=== PATIENT | female | born 1975 | race Caucasian/White ===

== ENCOUNTER 2018-03-06 16:32 | Emergency (ER) | payer OTHER ==
[2018-03-06 16:48] VITALS: BP 118/58
[2018-03-06] MEDS ORDERED: Albuterol/Ipratropium NEB.SOL* Albuterol 2.5 MG/Ipratropium 0.5 MG 3 ML INH ONE (17:53)
--- NOTE | 2018-03-06 17:58 | UC ---
FLU HPI - HPI Summary HPI Summary: This patient is a 42 year old F [place] [facility] [place] chief complaint of a flu like illness that began 10 days ago. Pt states that 10 days ago she began have myalgia and believed she felt like she was getting the flu. She c/o a sore chest, raspy cough, and post nasal drip. 3 days ago she began having intermittent episodes of SOB that she describes as feeling like there is a pressure on her chest, these last 30 minutes, then spontaneously resolve. The patient rates the pain 4/10 in severity. Patient reports chills. Patient denies fever and wheezing. Pt saw her PCP today who was unable to find the underlying cause of her SOB but prescribed her abx. Pt had a UTI a few weeks ago and was given abx. Pt states she was looking at mouse [employer] online because her house is infested and she is concerned she may have the hantavirus because she has seen mouse feces in her bed. - History of Current Complaint Chief Complaint: UCRespiratory Stated Complaint: DIFFICULTY BREATHING,COUGH,CHILLS Time Seen by Provider: 03/06/18 17:31 Hx Obtained From: Patient Onset/Duration: Lasting Days - 10, Still Present, Worse Since - 3 days ago Severity Currently: Mild Severity Initially: Moderate Pain Intensity: 4 Associated Signs & Symptoms: Positive: Negative - fever, Cough - Allergy/Home Medications Allergies/Adverse Reactions: Allergies Allergy/AdvReac Type Severity Reaction Status Date / Time ciprofloxacin [From Cipro] Allergy Joint Pain Verified 03/06/18 16:48 morphine Allergy Tingling Verified 03/06/18 16:48 Tetracyclines Allergy Hives Verified 03/06/18 16:48 Home Medications: Home Medications Escitalopram Oxalate [Lexapro 10 mg] 10 mg PO DAILY 03/06/18 [History Confirmed 03/06/18] PMH/Surg Hx/FS Hx/Imm Hx Psychological History: Anxiety Other History Of: Negative For: Anticoagulant Therapy - Surgical History Surgical History: Yes Surgery Procedure, Year, and Place: [facility] - Family History Known Family History: Negative: Respiratory Disease, Seizure Disorder, Blood Disorder - Social History Lives: With Family Alcohol Use: None Substance Use Type: None Smoking Status (MU): Never Smoked Tobacco Have You Smoked in the Last Year: No - Immunization History Most Recent Influenza Vaccination: fall 2012 Most Recent Tetanus Shot: unk Most Recent Pneumonia Vaccination: never Review of Systems Constitutional: Negative - fever, Chills ENT: Nasal Discharge, Other - post nasal drip Respiratory: Shortness Of Breath, Cough Cardiovascular: Other - sore chest w/ cough Musculoskeletal: Myalgia All Other Systems Reviewed And Are Negative: Yes Physical Exam - Summary Physical Exam Summary: General: mildly ill apearing, no pain distress Skin: warm, color reflects adequate perfusion, dry Head: normal Eyes: EOMI, JASON ENT: posterior pharynx erythema, anterior cervical lymphadenopathy, positive rhinorrhea, Neck: supple, nontender Respiratory: decreased air movement in the lung s Cardiovascular: RRR Abdomen: soft, nontender Bowel: present Musculoskeletal: normal, strength/ROM intact Neurological: sensory/motor intact, A&O x3 Psychological: affect/mood appropriate Triage Information Reviewed: Yes Vital Signs: Initial Vital Signs Temp 99.0 F 03/06/18 16:41 Pulse 81 03/06/18 16:41 Resp 18 03/06/18 16:41 BP 118/58 03/06/18 16:41 Pulse Ox 100 03/06/18 16:41 Vital Signs Reviewed: Yes Diagnostics - Radiology CXR Radiology Interpretation Completed By: Radiologist - No radiographic evidence of acute cardiopulmonary disease. Dr. Liao has reviewed this report. Flu Course/Dx - Course Course Of Treatment: We discussed the results of the chest x-ray. The patient is unsure if the DuoNeb helped. We discussed getting lab work which we did and the results are pending. The patient is on amoxicillin at this time with her primary care doctor. Discussed if her condition got worse she should evaluated in the emergency department. - Differential Dx/Diagnosis Provider Diagnoses: BRONCHITIS Discharge - Sign-Out/Discharge Documenting (check all that apply): Patient Departure All imaging exams completed and their final reports reviewed: Yes - Discharge Plan Condition: Stable Disposition: HOME Patient Education Materials: Fever in Adults (ED), Acute Bronchitis (ED) Referrals: Apple Rao MD [Primary Care Provider] - Additional Instructions: FOLLOW UP WITH YOUR DOCTOR. GO TO THE EMERGENCY DEPARTMENT FOR ANY WORSENING OF YOUR CONDITION OR QUESTIONS OR CONCERNS. - Billing Disposition and Condition Condition: STABLE Disposition: Home - Attestation Statements Document Initiated by Scribe: Yes Documenting Scribe: Roc Mckeon Provider For Whom Scribe is Documenting (Include Credential): Sampson Perdueibe Attestation: I, Roc Mckeon, scribed for Sampson Liao MD on 03/06/18 at 2138. Scribe Documentation Reviewed: Yes Provider Attestation: The documentation as recorded by the scribeRoc accurately reflects the service I personally performed and the decisions made by me, Sampson Liao MD
--- NOTE | 2018-03-06 18:24 | RAD ---
INDICATION: Shortness of breath, cough and fever COMPARISON: Chest x-ray dated December 17, 2013 TECHNIQUE: PA and lateral views of the chest were obtained. FINDINGS: The heart and mediastinum are normal in size and contour. The lungs are grossly clear. There is no evidence of large pleural effusion. Visualized bones are normal for the patient's age. There is no radiographic evidence of free air beneath the diaphragm IMPRESSION: No radiographic evidence of acute cardiopulmonary disease.
[2018-03-06] MEDS ORDERED: Albuterol HFA INHALER* 8 gm MDI INH ONE (18:58)
[2018-03-07 14:25] LABS: ABS Basophils 0.1 10^3/ul (0-0.2); ABS Eosinophils 0.1 10^3/ul (0-0.6); ABS Lymphocytes 1.6 10^3/ul (1.0-4.8); ABS Monocytes 0.6 10^3/ul (0-0.8); ABS Neutrophils 4.7 10^3/ul (1.5-7.7); ABS Nucleated RBC 0 10^3/ul; Eosinophil % 1.3 % (0-6); Hematocrit 39 % (35-47); Hemoglobin 12.7 g/dl (12.0-16.0); Lymphocyte % 23.2 % (25-47); Mean Corpuscular HGB Conc 33 g/dl (31-36); Mean Corpuscular Hemoglobin 30 pg (27-31); Mean Corpuscular Volume 91 fL (80-97); Mean Platelet Volume 10.3 um3 (7.4-10.4); Nucleated Red Blood Cells % 0.2; Platelet Count 263 10^3/ul (150-450); Red Blood Count 4.22 10^6/ul (4.00-5.40); Red Cell Distribution Width 13 % (10.5-15)
[2018-03-07 14:36] LABS: EGFR Non-African American 78.3 (>60)
== END 2018-03-06 19:24 | disposition home or self-care (01) ==
LOC: UCEAST 16:32
DX: J40 Bronchitis, not specified as acute or chronic (principal); Z88.1 Allergy status to other antibiotic agents
CPT/HCPCS: 36415; 71046; 80053; 85025; 86140; 99212; A9270-GY; G0463